=== PATIENT | male | born 1970 | race Caucasian/White ===

== ENCOUNTER 2017-04-12 13:47 | Emergency (ER) | payer OTHER ==
[~2017-04-12] VITALS: Ht 188 cm; Wt 98.0 kg
[2017-04-12 13:53] VITALS: BP 101/74
[2017-04-12] MEDS ORDERED: LIDOCAINE 1%, 20ML ONE (14:18)
[2017-04-12] MEDS ORDERED: LIDOCAINE 1%-EPI 1:100K, 20ML SQ ONE (14:30)
[2017-04-12] MEDS ORDERED: BACITRACIN ZINC OINT 500U/GM, 0.9 GM ONE (15:25)
== END 2017-04-12 15:38 | disposition home or self-care (01) ==
LOC: ED 14:25
DX: S61.212A Laceration without foreign body of right middle finger without damage to nail, initial encounter (principal); X58.XXXA Exposure to other specified factors, initial encounter; Y93.89 Activity, other specified; Y92.89 Other specified places as the place of occurrence of the external cause; Y99.8 Other external cause status
CPT/HCPCS: 12001

== ENCOUNTER 2020-09-26 11:00 | Inpatient (IN) | payer OTHER ==
[~2020-09-26] VITALS: Ht 188 cm; Wt 103.4 kg
[2020-09-26 11:42] LABS: BASOPHILS % (AUTO) 0 % (0-1); EOSINOPHILS % (AUTO) 1 % (1-7); LYMPHOCYTES % (AUTO) 9 % (22-44); MEAN CORPUSCULAR HEMOGLOBIN 30.7 pg (27.5-34.5); MEAN CORPUSCULAR HGB CONC 34.4 g/dL (33.2-36.2); MEAN PLATELET VOLUME 7.3 fL (7.4-10.4); MONOCYTES % (AUTO) 10 % (2-9); NEUTROPHILS % (AUTO) 79 % (42-75); PLATELET COUNT 397 x10^3/uL (130-400); RED BLOOD COUNT 4.56 x10^6/uL (4.38-5.82); RED CELL DISTRIBUTION WIDTH 13.3 % (9.4-14.8)
[2020-09-26 11:50] LABS: ALBUMIN 3.4 g/dL (3.4-5.0); ANION GAP 5 mmol/L (5-15); CALCIUM 9.3 mg/dL (8.5-10.1); CHLORIDE 103 mmol/L (98-107)
[2020-09-26 11:54] LABS: ALANINE AMINOTRANSFERASE 39 U/L (12-78); ALKALINE PHOSPHATASE 101 U/L (45-117); BILIRUBIN,TOTAL 0.4 mg/dL (0.2-1.0); CREATININE 1.16 mg/dL (0.7-1.3); TOTAL PROTEIN 7.8 g/dL (6.4-8.2)
--- NOTE | 2020-09-26 12:13 | NUR ---
CABINETMAKER APPRENTICE: PT TO ROOM FROM EARL NICHOLS
--- NOTE | 2020-09-26 13:01 | NUR ---
blood cultures x 2 obtained, placed on cardiac cath lab technologist piv placed right knee swollen/hot to touch and red, with spread up and down lef to ankle to high groin-leading edge marked with skin marker and timed erp asked for fluid/abx order/tylenol orders
[2020-09-26] MEDS ORDERED: VANCOMYCIN PER PHARMACY MC PRN ×2 (13:30→15:30)
[2020-09-26] MEDS ORDERED: KETOROLAC 15 MG/1ML IVPush ONE (13:30)
[2020-09-26] MEDS ORDERED: SODIUM CHLORIDE 0.9% 1,000ML IVBOLUS ONE (13:30)
[2020-09-26] MEDS ORDERED: DIPHTHERIA-TETANUS ADULT 0.5ML IM-VACC ONE (13:30)
[2020-09-26] MEDS ORDERED: ACETAMINOPHEN 500 MG TABLET PO PRN (13:30)
[2020-09-26] MEDS ORDERED: AMPICILLIN/SULBACTAM 3 GM in SODIUM CHLORIDE 0.9% 100 ML IV ONE (13:30)
[2020-09-26] MEDS ORDERED: VANCOMYCIN 2,500 MG in SODIUM CHLORIDE 0.9% 500 ML IV ONE (13:30)
--- NOTE | 2020-09-26 13:40 | NUR ---
2 SETS OF BLOOD CULTURES ONTAINED-ABX 1/2 STARTED PER EMAR
[2020-09-26] MEDS ORDERED: ACETAMINOPHEN 500 MG TABLET ONE (13:49)
[2020-09-26] MEDS ORDERED: KETOROLAC 30 MG/1 ML ONE (13:49)
[2020-09-26] MEDS ORDERED: DIPH,PERTUSS(ACELL),TET VAC/PF 0.5 ML IM-VACC ONE (13:50)
--- NOTE | 2020-09-26 13:58 | NUR ---
ABX 1/2 COMPLETE, ABX 2/2 STARTED PER EMAR WELL TDAP/NSAIDS X2 REPORT TO YASH PETER
--- NOTE | 2020-09-26 14:01 | NUR ---
REPORT FROM [facility]
--- NOTE | 2020-09-26 14:10 | NUR ---
ct called to expedite exam report to filipe wilkinson
--- NOTE | 2020-09-26 15:00 | NUR ---
PT BACK FROM CT
[2020-09-26] MEDS ORDERED: ACETAMINOPHEN 325 MG TABLET PO PRN (15:30)
[2020-09-26] MEDS ORDERED: ONDANSETRON ODT 4 MG PO PRN (15:30)
[2020-09-26] MEDS ORDERED: POLYETHYLENE GLYCOL 17 GM PACKET PO PRN (15:30)
[2020-09-26] MEDS ORDERED: KETOROLAC 30 MG/1 ML IV PRN (15:30)
[2020-09-26] MEDS ORDERED: ONDANSETRON 2MG/ML, 2ML IVPush PRN (15:30)
--- NOTE | 2020-09-26 15:43 | NUR ---
US AT BEDSIDE.
--- NOTE | 2020-09-26 15:47 | NUR ---
REPORT TO JOSE.
[2020-09-26] MEDS ORDERED: OMNIPAQUE 350 MG/ML, 150 ML BOTTLE ONE (15:51)
[2020-09-26] MEDS ORDERED: PHARMACOKINETIC CONSULTATION MC ONE (16:30)
[2020-09-26] MEDS ORDERED: PHARMACOKINETIC MONITORING MC PRN (16:30)
[2020-09-26] MEDS: LACTATED RINGERS 1,000 ML IV SCH (17:26)
[2020-09-26] MEDS: AMPICILLIN/SULBACTAM 3 GM in SODIUM CHLORIDE 0.9% 100 ML IV SCH ×2 (17:33→23:19)
[2020-09-26] MEDS: ENOXAPARIN 40 MG/0.4 ML SQ SCH (17:38)
[2020-09-26 17:51] VITALS: BP 142/80
[2020-09-26 18:56] VITALS: BP 113/57
[2020-09-27 00:19] LABS: AMPHETAMINE SCREEN, URINE Positive (Negative); BARBITURATE SCREEN, URINE Negative (Negative); BENZODIAZEPINE SCREEN, URINE Negative (Negative); CANNABINOID SCREEN, URINE Negative (Negative); COCAINE SCREEN, URINE Negative (Negative); METHADONE SCREEN, URINE Negative (Negative); OPIATE SCREEN, URINE Negative (Negative)
[2020-09-27 01:39] VITALS: BP 111/71
[2020-09-27] MEDS: VANCOMYCIN 1,600 MG in SODIUM CHLORIDE 0.9% 250 ML IV SCH ×2 (01:47→13:08)
[2020-09-27 05:19] LABS: BASOPHILS % (AUTO) 1 % (0-1); EOSINOPHILS % (AUTO) 1 % (1-7); LYMPHOCYTES % (AUTO) 9 % (22-44); MEAN CORPUSCULAR HEMOGLOBIN 30.8 pg (27.5-34.5); MEAN CORPUSCULAR HGB CONC 34.2 g/dL (33.2-36.2); MEAN PLATELET VOLUME 7.3 fL (7.4-10.4); MONOCYTES % (AUTO) 10 % (2-9); NEUTROPHILS % (AUTO) 79 % (42-75); PLATELET COUNT 371 x10^3/uL (130-400); RED CELL DISTRIBUTION WIDTH 13.4 % (9.4-14.8)
[2020-09-27 05:24] LABS: HCT (SEDRATE) 36.6 % (39.2-51.8)
[2020-09-27 05:32] LABS: ALBUMIN 2.6 g/dL (3.4-5.0); ANION GAP 3 mmol/L (5-15); CALCIUM 8.4 mg/dL (8.5-10.1); CHLORIDE 110 mmol/L (98-107)
[2020-09-27] MEDS: AMPICILLIN/SULBACTAM 3 GM in SODIUM CHLORIDE 0.9% 100 ML IV SCH ×4 (05:38→23:04)
[2020-09-27 05:43] LABS: ALANINE AMINOTRANSFERASE 37 U/L (12-78); ALKALINE PHOSPHATASE 98 U/L (45-117); BILIRUBIN,TOTAL 0.3 mg/dL (0.2-1.0); CREATININE 1.12 mg/dL (0.7-1.3); TOTAL PROTEIN 6.5 g/dL (6.4-8.2)
[2020-09-27] MEDS ORDERED: CHLORHEXIDINE 15 ML UDC ONE (06:29)
[2020-09-27] MEDS ORDERED: CHLORHEXIDINE 15 ML UDC PO ONE (06:30)
[2020-09-27] MEDS ORDERED: FENTANYL PF 100 MCG/2ML ONE (06:43)
[2020-09-27] MEDS ORDERED: MIDAZOLAM 1 MG/ML, 2ML ONE (06:43)
[2020-09-27] MEDS ORDERED: DEXAMETHASONE 4 MG/ML, 1ML ONE (07:11)
[2020-09-27] MEDS ORDERED: PROPOFOL 10 MG/ML, 20ML ONE (07:11)
[2020-09-27] MEDS ORDERED: CEFAZOLIN 1,000 MG ONE (07:11)
[2020-09-27] MEDS ORDERED: ONDANSETRON 2MG/ML, 2ML ONE (07:11)
[2020-09-27] MEDS ORDERED: HYDROcodone/APAP 7.5-325MG/15ML UDC PO PRN (07:30)
[2020-09-27] MEDS ORDERED: FENTANYL PF 100 MCG/2ML IV PRN (07:30)
[2020-09-27] MEDS ORDERED: ACETAMINOPHEN 325 MG TABLET PO PRN (07:30)
[2020-09-27] MEDS ORDERED: MEPERIDINE/PF 25MG/0.5ML IVPush PRN (07:30)
[2020-09-27] MEDS ORDERED: ONDANSETRON 2MG/ML, 2ML IVPush PRN (07:30)
[2020-09-27] MEDS ORDERED: KETOROLAC 30 MG/1 ML IVPush PRN (07:30)
[2020-09-27] MEDS ORDERED: PROMETHAZINE 25 MG/ML, 1ML IVPush PRN (07:30)
[2020-09-27] MEDS ORDERED: HYDROmorphone 1 MG/ML, 1ML INJ IVPush PRN (07:30)
[2020-09-27] MEDS ORDERED: OXYcodone 5 MG/5 ML ORAL.SOL UDC PO PRN (07:30)
[2020-09-27 08:53] VITALS: BP 136/79
[2020-09-27] MEDS: SENNA/DOCUSATE TABLET PO SCH (08:55)
[2020-09-27] MEDS: LACTATED RINGERS 1,000 ML IV SCH (08:55)
[2020-09-27] MEDS ORDERED: HYDROcodone/APAP 5/325 TABLET PO PRN (11:00)
[2020-09-27 13:35] VITALS: BP 139/75
[2020-09-27] MEDS: ENOXAPARIN 40 MG/0.4 ML SQ SCH (17:28)
[2020-09-27 18:43] VITALS: BP 125/80
[2020-09-28 00:59] LABS: BASOPHILS % (AUTO) 1 % (0-1); EOSINOPHILS % (AUTO) 2 % (1-7); LYMPHOCYTES % (AUTO) 16 % (22-44); MEAN CORPUSCULAR HEMOGLOBIN 31.1 pg (27.5-34.5); MEAN CORPUSCULAR HGB CONC 34.4 g/dL (33.2-36.2); MONOCYTES % (AUTO) 11 % (2-9); NEUTROPHILS % (AUTO) 71 % (42-75); PLATELET COUNT 369 x10^3/uL (130-400); RED CELL DISTRIBUTION WIDTH 13.1 % (9.4-14.8)
[2020-09-28] MEDS: VANCOMYCIN 1,600 MG in SODIUM CHLORIDE 0.9% 250 ML IV SCH ×2 (01:45→13:36)
[2020-09-28 01:49] LABS: ANION GAP 3 mmol/L (5-15); CALCIUM 8.6 mg/dL (8.5-10.1); CHLORIDE 106 mmol/L (98-107); CREATININE 1.21 mg/dL (0.7-1.3)
[2020-09-28 03:37] VITALS: BP 118/74
[2020-09-28] MEDS: AMPICILLIN/SULBACTAM 3 GM in SODIUM CHLORIDE 0.9% 100 ML IV SCH ×3 (04:34→18:54)
[2020-09-28] MEDS: SENNA/DOCUSATE TABLET PO SCH (10:08)
[2020-09-28 10:16] VITALS: BP 124/72
[2020-09-28 15:59] VITALS: BP 127/80
[2020-09-28 18:45] VITALS: BP 133/79
[2020-09-28] MEDS: ENOXAPARIN 40 MG/0.4 ML SQ SCH (18:50)
[2020-09-29 00:30] VITALS: BP 117/77
[2020-09-29] MEDS: AMPICILLIN/SULBACTAM 3 GM in SODIUM CHLORIDE 0.9% 100 ML IV SCH ×3 (00:30→12:29)
[2020-09-29] MEDS: VANCOMYCIN 1,600 MG in SODIUM CHLORIDE 0.9% 250 ML IV SCH (01:44)
[2020-09-29 07:59] VITALS: BP 117/72
[2020-09-29] MEDS: SENNA/DOCUSATE TABLET PO SCH (09:00)
[2020-09-29] MEDS ORDERED: CEPH-376 PO (09:53)
== END 2020-09-29 13:30 | disposition home or self-care (01) | DRG 854 ==
LOC: ED 13:21 → EDIP 14:46 → 3N 16:25
PROVIDERS: ADMIT Hospitalist; ATTEND Family Medicine
PROC: 0S9C0ZZ Drainage of Right Knee Joint, Open Approach (ICD-10-PCS; principal; 2020-09-27 07:00)
DX: A41.9 Sepsis, unspecified organism (principal); L02.415 Cutaneous abscess of right lower limb; L02.416 Cutaneous abscess of left lower limb; L03.115 Cellulitis of right lower limb; F15.10 Other stimulant abuse, uncomplicated; F17.200 Nicotine dependence, unspecified, uncomplicated; M19.90 Unspecified osteoarthritis, unspecified site; Z86.14 Personal history of Methicillin resistant Staphylococcus aureus infection; Z87.11 Personal history of peptic ulcer disease
CPT/HCPCS: 36415; 80048; 80053; 80202; 80307; 83036; 83605; 85025; 85651; 86140; 87040; 87070; 87075; 87077; 87186; 87205; 87635; 90471; 90714; G0378; J0295; J0690; J1100; J1650; J1885; J2250; J2405; J2704; J3010; J3370; Q9967; J7030; J7040; J7050; J7120